=== PATIENT | male | born 1995 | race Two or more races ===

== ENCOUNTER 2018-02-12 02:02 | Emergency (ER) | payer MEDICAID ==
[2018-02-12 02:11] VITALS: BP 148/108
--- NOTE | 2018-02-12 02:27 | EDPHY ---
H & P Stated Complaint: pain to coccyx, noticed "cyst" to area 5 d ago. now oozing blood, bad odor. Time Seen by Provider: 02/12/18 02:27 HPI/ROS: HPI CHIEF COMPLAINT: Pilonidal cyst HISTORY OF PRESENT ILLNESS: 22-year-old male, otherwise healthy no significant medical history does not take any daily medications presents emergency room with a cyst on his tailbone. Patient states for the past 5 days he has noticed some pain and swelling to the region at the top of his gluteal fold. Increasing pain and then started draining today. With foul smell. Never had this before denies fever. States been draining some yellow purulent reddish discharge. Decided come the emergency room for further evaluation of this. Past Medical History: Denies significant medical history Past Surgical History: Denies significant surgical history Social History: Denies drugs alcohol tobacco Family History: Noncontributory ROS REVIEW OF SYSTEMS: A comprehensive 10 point review of systems is otherwise negative aside from elements mentioned in the history of present illness. Exam Constitutional appears well nontoxic no acute distress, triage nursing summary reviewed, vital signs reviewed, awake/alert. Eyes normal conjunctivae and sclera, EOMI, PERRLA. HENT normal inspection, atraumatic, moist mucus membranes, no epistaxis, neck supple/ no meningismus, no raccoon eyes. Respiratory clear to auscultation bilaterally, normal breath sounds, no respiratory distress, no wheezing. Cardiovascular rate normal, regular rhythm, no murmur, no edema, distal pulses normal. Gastrointestinal soft, non-tender, no rebound, no guarding, normal bowel sounds, no distension, no pulsatile mass. Genitourinary no CVA tenderness. Musculoskeletal no midline vertebral tenderness, full range of motion, no calf swelling, no tenderness of extremities, no meningismus, good pulses, neurovascularly intact. Skin gluteal fold superior aspect pilonidal cyst seen, it is draining with blood tinge foul-smelling discharge, no significant induration or fluctuance no large abscess, already draining, pink, warm, & dry, no rash, skin atraumatic. Neurologic awake, alert and oriented x 3, AAOx3, moves all 4 extremities equally, motor intact, sensory intact, CN II-XII intact, normal cerebellar, normal vision, normal speech. Psychiatric normal mood/affect. Heme/Lymph/Immune no lymphadenopathy. Differential Diagnosis: Includes but is not limited to in a particular order pilonidal cyst, gluteal abscess, cellulitis, MRSA. Plan for this patient warm compresses and warm soaks 2-3 times over the next week. Recommend Sitz baths. Additionally Keflex as prescribed. Additionally I have given referral to General surgery. Return precautions discussed return if worsening pain swelling foul smell drainage fever or worsening symptoms. Source: Patient - Personal History Current Tetanus/Diphtheria Vaccine: Yes Current Tetanus Diphtheria and Acellular Pertussis (TDAP): Yes Tetanus Vaccine Date: 2011 - Medical/Surgical History Hx Asthma: No Hx Chronic Respiratory Disease: No Hx Diabetes: No Hx Cardiac Disease: No Hx Renal Disease: No Hx Cirrhosis: No Hx Alcoholism: No Hx HIV/AIDS: No Hx Splenectomy or Spleen Trauma: No Other PMH: rt ankle fracture - Social History Smoking Status: Never smoked Constitutional: Initial Vital Signs Temperature (C) 36.7 C 02/12/18 02:07 Heart Rate 130 H 02/12/18 02:07 Respiratory Rate 16 02/12/18 02:07 Blood Pressure 148/108 H 02/12/18 02:07 O2 Sat (%) 95 02/12/18 02:07 O2 Delivery Mode Room Air Allergies/Adverse Reactions: No Known Allergies Allergy (Verified 02/12/18 02:04) Home Medications: Medication Instructions Recorded Cephalexin [Keflex] 500 mg PO Q6H #28 cap 02/12/18 Departure - Departure Disposition: Home, Routine, Self-Care Clinical Impression: Pilonidal cyst Condition: Good Instructions: Cephalexin (By mouth), Pilonidal Cyst (ED) Additional Instructions: 1. Warm soaks 2 to 3 times a day for 20-30 min. 2. Antibiotics as prescribed. 3. Follow up with surgery on outpatient basis 4. Return to the emergency room if there is worsening symptoms questions or concerns. Referrals: NONE *PRIMARY CARE P,. [Primary Care Provider] - As per Instructions Jeovany Jorge MD [Medical Doctor] - As per Instructions Prescriptions: Cephalexin [Keflex] 500 mg PO Q6H #28 cap
[2018-02-12] MEDS ORDERED: CEPHALEXIN 500 MG CAP PO ONE (02:31)
[2018-02-12] MEDS ORDERED: CEPHALEXIN 500MG PREPACK#4 BTL TAKEHOME ONE (02:31)
== END 2018-02-12 02:46 | disposition home or self-care (01) ==
DX: L05.91 Pilonidal cyst without abscess (principal)